=== PATIENT | male | born 1995 | race Caucasian/White ===

== ENCOUNTER 2017-02-23 17:48 | Emergency (ER) | payer SELFPAY ==
--- NOTE | 2017-02-23 21:25 | ED ---
Skin Complaint - HPI Summary HPI Summary: Rt hand dominant pt here w/ Rt palm laceration around 15:00 today. Was [place] when he accidentally sliced his hand on a rock. Denies numbness, tingling, weakness. Imms are UTD. - History of Current Complaint Chief Complaint: EDLacSutureRecheck Time Seen by Provider: 02/23/17 20:37 Stated Complaint: HAND LAC Hx Obtained From: Patient Pain Intensity: 4 - Allergy/Home Medications Allergies/Adverse Reactions: Allergies Allergy/AdvReac Type Severity Reaction Status Date / Time No Known Allergies Allergy Verified 02/23/17 20:38 PMH/Surg Hx/FS Hx/Imm Hx Previously Healthy: Yes Endocrine/Hematology History: Denies: Hx Anticoagulant Therapy, Hx Blood Disorders Infectious Disease History: Denies: Traveled Outside the [place] in Last 30 Days - Social History Alcohol Use: Occasionally Hx Substance Use: No Substance Use Type: Reports: None Hx Tobacco Use: Yes Smoking Status (MU): Current Every Day Smoker Review of Systems Musculoskeletal: Negative Skin: Other - see HPI Neurological: Negative Psychological: Normal All Other Systems Reviewed And Are Negative: Yes Physical Exam Triage Information Reviewed: Yes Vital Signs On Initial Exam: Initial Vitals Temp Pulse Resp BP Pulse Ox 99.7 F 106 18 123/69 98 02/23/17 17:50 02/23/17 17:50 02/23/17 17:50 02/23/17 17:50 02/23/17 17:50 Vital Signs Reviewed: Yes Appearance: Positive: Well-Appearing, No Pain Distress, Well-Nourished Skin: Positive: Warm - linear laceration over Rt palmar aspect of thenar eminance/palm area - subcutaneous tissue observed - no bleeding Eyes: Positive: EOMI ENT: Positive: Hearing grossly normal Respiratory/Lung Sounds: Positive: Breath Sounds Present Cardiovascular: Positive: Pulses are Symmetrical in both Upper and Lower Extremities Musculoskeletal: Positive: Normal, Strength/ROM Intact Neurological: Positive: Normal, Sensory/Motor Intact, Alert, Oriented to Person Place, Time, CN Intact II-III Psychiatric: Positive: Normal Procedures - Laceration/Wound Repair 1 Location: upper extremity - Rt hand, palmar surface Description: Linear Anesthesia: Local, Lido - successful, Marcaine - unsuccessful Length, Depth and Shape: 3cm x 3mm Betadine Prep?: Yes Irrigated w/ Saline (ccs): 250 - sterile saline and iodine solution Laceration/Wound Explored: clean Closure: Single Layer Suture Type: Nylon - 5-0 Number of Sutures: 5 Layer Closure?: No Sterile Dressing Applied?: Yes - triple anbx + gauze + CHARLEY wrap Diagnostics - Vital Signs Vital Signs Temp Pulse Resp BP Pulse Ox 02/23/17 20:18 99.7 F 106 18 123/69 98 02/23/17 17:50 99.7 F 106 18 123/69 98 - Laboratory Lab Statement: Any lab studies that have been ordered have been reviewed, and results considered in the medical decision making process. Course/Dx - Diagnoses Provider Diagnoses: Laceration of right palm Discharge - Discharge Plan Condition: Stable Disposition: HOME Prescriptions: Clindamycin CAP* [Cleocin 150 MG CAP*] 300 mg PO Q6H #56 cap Patient Education Materials: Laceration (ED), Care For Your Stitches (ED) Referrals: Non Staff,Doctor [Primary Care Provider] - [facility] [Outside] Additional Instructions: Keep dressing clean, dry and intact for 48 hours. After this time, you may remove dressing and gently wash wound daily with soap and water - pat dry with clean towel and reapply triple antibiotic ointment as well as fresh gauze dressing. Follow-up with PCP in 10 days for wound check and suture removal. Call Sunday to schedule an appointment. Rest, ice, elevate for pain, swelling. You may take ibuprofen with food as needed for pain, swelling. Complete antibiotics as directed. *If you develop swelling, redness, streaking, purulent drainage, fever, chills, seek medical attention sooner
[2017-02-23] MEDS ORDERED: Clindamycin CAP* 150 MG PO ONE ×2 (21:55→22:43)
[2017-02-23 22:55] VITALS: BP 138/62
== END 2017-02-23 22:53 | disposition home or self-care (01) ==
LOC: ED 17:48
DX: S61.411A Laceration without foreign body of right hand, initial encounter (principal); F17.200 Nicotine dependence, unspecified, uncomplicated; W45.8XXA Other foreign body or object entering through skin, initial encounter; Y93.11 Activity, swimming; Y92.9 Unspecified place or not applicable
CPT/HCPCS: 12002; 99283; A9270-GY